=== PATIENT | female | born 1995 | race Two or more races ===

== ENCOUNTER 2024-04-21 14:32 | Emergency (ER) | payer OTHER ==
[~2024-04-21] VITALS: Ht 160 cm; Wt 55.3 kg
[2024-04-21 15:56] LABS: Urine Bacteria None Seen /hpf (None Seen)
[2024-04-21 16:17] LABS: Urine Blood 3+ /uL (Negative); Urine Clarity Turbid (Clear); Urine Color Yellow (Yellow); Urine Mucus FEW (None Seen); Urine Protein, UAD TRACE (Negative); Urine Specific Gravity 1.025 (1.001-1.035); Urine Urobilinogen Normal (Negative); Urine WBC 19 /hpf (0 - 5); Urine pH 5.5 (5.0-9.0)
[2024-04-21 17:53] VITALS: BP 117/63; PULSE 79; RESP 16; TEMP 98.4
[2024-04-21] MEDS ORDERED: CEPHALEXIN 250 MG CAP PO ONE (18:00)
[2024-04-21] MEDS ORDERED: CEPH500T PO (18:00)
[2024-04-21 18:12] VITALS: O2SAT 98
== END 2024-04-21 18:12 | disposition home or self-care (01) ==
LOC: ER 14:38
DX: O20.0 Threatened abortion (principal); Z3A.01 Less than 8 weeks gestation of pregnancy
CPT/HCPCS: 36415; 76801; 76817; 81001; 84702; 86901

== ENCOUNTER 2024-04-22 05:12 | Emergency (ER) | payer OTHER ==
[~2024-04-22] VITALS: Ht 160 cm; Wt 57.9 kg
[~2024-04-22 05:12] MED LIST: CEPH500T PO
[2024-04-22 05:41] LABS: Urine Bacteria None Seen /hpf (None Seen)
[2024-04-22 06:00] LABS: Urine Blood 3+ /uL (Negative); Urine Clarity Clear (Clear); Urine Color Yellow (Yellow); Urine Mucus FEW (None Seen); Urine Protein, UAD TRACE (Negative); Urine Specific Gravity 1.027 (1.001-1.035); Urine Urobilinogen Normal (Negative); Urine WBC 1 /hpf (0 - 5); Urine pH 5.5 (5.0-9.0)
[2024-04-22] MEDS: ACETAMINOPHEN 325 MG TAB PO ONE (06:47)
[2024-04-22 07:30] VITALS: PULSE 63; RESP 13; O2SAT 100
[2024-04-22 07:50] VITALS: BP 111/64; PULSE 63; RESP 13; TEMP 98.6; O2SAT 100
== END 2024-04-22 07:54 | disposition home or self-care (01) ==
LOC: ER 05:12
DX: O20.9 Hemorrhage in early pregnancy, unspecified (principal); R10.2 Pelvic and perineal pain; Z3A.01 Less than 8 weeks gestation of pregnancy
CPT/HCPCS: 36415; 81001; 84702